=== PATIENT | female | born 1940 | race Caucasian/White ===

== ENCOUNTER 2018-06-17 13:29 | Observation (INO) ==
[~2018-06-17 13:29] MED LIST: LIDOCAINE W/ SODIUM BICARB 0.5 ML SYR ONE; LIDOCAINE W/ SODIUM BICARB 0.5 ML SYR SUBD ONE; Lactated Ringers 1,000 ML PRIMARY IV ONE; Nasal Sanitizer POPSWAB ampule 3 AMP (Nozin) PREOP DOSE ENOS SCH; ceFAZolin Inj 2gm (Premix) 2 GM/50 ML BAG IV ONE
[2018-06-17] MEDS: Lactated Ringers 1,000 ML PRIMARY IV SCH ×2 (13:55→19:14)
[2018-06-17] MEDS ORDERED: MIDAZOLAM HCL 2 MG/2 ML VIAL ONE (15:45)
[2018-06-17] MEDS ORDERED: LIDOCAINE 2%/ EPI 1:200,000 - 20 ML VIAL ONE (15:45)
[2018-06-17] MEDS ORDERED: fentaNYL Inj 100 MCG/2 ML VIAL ONE (15:45)
[2018-06-17] MEDS ORDERED: BUPIVACAINE 0.5% W/ EPI - 10 ML VIAL ONE (15:46)
[2018-06-17] MEDS ORDERED: BUPivacaine Inj 0.5% PF (5mg/ml) 30ml vial ONE (15:54)
[2018-06-17] MEDS ORDERED: PROPOFOL 10 MG/1 ML (200 MG/20 ML) VIAL IV ONE (16:24)
[2018-06-17] MEDS ORDERED: ePHEDrine Inj 50 MG/ML AMP ONE (16:31)
--- NOTE | 2018-06-17 16:52 | CRNA.PROCE ---
Nerve Block Documentation - - Safety Measures: Time Out Taken, Site Verified - - Type of Nerve Block Used: Left Adductor Canal Nerve Block Position for Nerve Block: Supine Moniters Used During Block: EKG, SPO2, NIBP Oxygen Supplemented: Yes Sedation Used - Enter Amount in Comment Field [ANES.SEDAT]: Midazolam (mg): Yes (2mg), Fentanyl (mcg): Yes (100mcg) Skin Prep Used: ChloroPrep Technique: Ultrasound Nerve Block Needle Used: EchoBright 100 mm Local Anesthetic - Enter Amt in Comment Field [ANES.LOCNB]: 0.5 % Bupivicaine with Epinephrine 1:200,000 (mL): Yes (15), 2 % Xylocaine with Epinephrine 1:200, 000 (mL): Yes (15) - - PreOp Block : Time In: 16:00 PreOp Block : Time Out: 16:10 Anesthesia Time - Other Weight: 58.513 kg Height: 5 ft 5 in Body Mass Index (BMI): 21.4
[2018-06-17] MEDS ORDERED: ONDANSETRON 4 MG/2 ML VIAL ONE (17:39)
--- NOTE | 2018-06-17 17:53 | ORTHO.OP ---
Surgery Date: 06/17/18 Preoperative Diagnosis: Lateral tibial plateau fracture left knee Postoperative Diagnosis: Same Procedure: ORIF left lateral tibial plateau fracture with screws Surgeon: Sandy Solano MD Arc Welder: IVAN Trotter Anesthesia Provider: Kev Garcia CRNA Anesthesia Type: General, Regional Estimated Blood Loss (mL): 25 Fluids: Crystalloid Complications: None Operative Summary: Extubated and taken recovery room in stable condition.
[2018-06-17] MEDS ORDERED: LIDOCAINE HCL 2 % 10 ML JELLY URO-JECT TOPICAL PRN (17:54)
[2018-06-17] MEDS ORDERED: ONDANSETRON 4 MG/2 ML VIAL IVP PRN (17:54)
[2018-06-17] MEDS ORDERED: Ondansetron ODT Tab 8 MG TAB PO PRN (17:54)
[2018-06-17] MEDS ORDERED: BISACODYL 5 MG TABLET PO PRN (17:54)
[2018-06-17] MEDS ORDERED: ACETAMINOPHEN 325 MG TABLET PO PRN (17:54)
[2018-06-17] MEDS ORDERED: MAG HYDROX/AL HYDROX/SIMETH 30 ML SUSP PO PRN (17:54)
[2018-06-17] MEDS ORDERED: Prochlorperazine Tab 10 MG TAB PO PRN (17:54)
[2018-06-17] MEDS ORDERED: CALCIUM CARBONATE 500 MG (TUMS) CHEWABLE TABLET PO PRN (17:54)
[2018-06-17] MEDS ORDERED: IBUPROFEN 400 MG TABLET PO PRN (17:54)
[2018-06-17] MEDS ORDERED: diphenhydrAMINE 25 MG CAPSULE PO PRN (17:54)
[2018-06-17] MEDS ORDERED: BISACODYL 10 MG SUPPOSITORY RECTAL PRN (17:54)
[2018-06-17] MEDS ORDERED: ceFAZolin Inj 2gm (Premix) 2 GM/50 ML BAG IV SCH (18:00)
--- NOTE | 2018-06-17 18:08 | CRNA.PROGR ---
Anesthesia Time - Procedure/Recovery Time Start Date: 06/17/18 End Date: 06/17/18 Anesthesia : Time In: 16:14 Anesthesia : Time Out: 17:52 Anesthesia : Total Time: 98 - Block Time PreOp Block : Time In: 16:00 PreOp Block : Time Out: 16:10 - Total Anesthesia Time Total Anesthesia Time (minutes): 98 - Other Weight: 58.513 kg Height: 5 ft 5 in Body Mass Index (BMI): 21.4
--- NOTE | 2018-06-17 18:09 | CRNA.PROGR ---
Post Anesthesia Phase II - Post Anesthesia Phase II Patient Stable and Discharged To: Phase II Care Assumed By Surgeon: Sandy Solano MD Temperature: 98.2 F Pulse Rate: 79 Respiratory Rate: 16 Blood Pressure: 123/74 Pulse Ox: 93 Total Doreen Score at Discharge: 10 Post Anesthesia Discharge Criteria Met: Yes
[2018-06-17] MEDS: Simvastatin Tab 40 MG TAB PO SCH (18:33)
[2018-06-17] MEDS: HYDROcodone-APAP 7.5 MG-325 MG TABLET PO PRN ×2 (18:39→20:52)
[2018-06-17] MEDS: D5-1/2NS + 20mEq KCL 1,000 ML PRIMARY IV SCH (18:41)
[2018-06-17] MEDS: MORPHINE SULFATE 2 MG/1 ML IVP PRN ×2 (18:59→20:51)
[2018-06-18] MEDS: ceFAZolin Inj 2gm (Premix) 2 GM/50 ML BAG IV SCH ×2 (00:28→07:22)
[2018-06-18] MEDS: HYDROcodone-APAP 7.5 MG-325 MG TABLET PO PRN ×4 (01:39→12:59)
[2018-06-18] MEDS: D5-1/2NS + 20mEq KCL 1,000 ML PRIMARY IV SCH (05:23)
[2018-06-18 07:34] VITALS: RESP 18
--- NOTE | 2018-06-18 07:38 | ORTHO.PROG ---
Last Taken Vital Signs: Vital Signs - Last Taken Temperature 97.4 F 06/18/18 07:00 Pulse Rate 53 L 06/18/18 07:00 Respiratory Rate 18 06/18/18 07:00 Blood Pressure 126/76 06/18/18 07:00 Pulse Ox 97 06/18/18 07:00 Subjective: Patient sitting up in bed eating breakfast not complaining of much pain. Has received some morphine and [place] through the night. Objective: Vital signs stable patient afebrile. Left knee brace intact. Patient is able to flex and extend her foot. Foot is vascular. Assessment: Impression: Doing well postop day 1 from fixation of left tibial plateau fracture. Plan: Plan: Is to do some therapy today helping her work on nonweightbearing status left lower extremity with walker. We will start her on Lovenox 40 mg subcutaneous daily. This is to prevent blood clot. I will check on her later today and possibly discharge her this afternoon.
[2018-06-18] MEDS: Simvastatin Tab 40 MG TAB PO SCH (08:20)
[2018-06-18] MEDS ORDERED: LISINOPRIL 20 MG TABLET PO SCH (09:00)
[2018-06-18] MEDS ORDERED: HYDROCHLOROTHIAZIDE 12.5 MG CAPSULE PO SCH (09:00)
[2018-06-18] MEDS ORDERED: ENOXAPARIN SODIUM 40 MG/0.4 ML SYRINGE SUBCUT SCH (09:00)
[2018-06-18] MEDS ORDERED: OXYBUTYNIN CHLORIDE 5 MG PO SCH (09:00)
[2018-06-18 11:08] VITALS: BP 105/69; TEMP 97.2; O2SAT 90
--- NOTE | 2018-06-18 12:45 | OPS CRUTCH ---
Diagnosis : Left ORIF Tibial Plateau w/ Screws Referral Reason: IROM Knee Brace/IceMan Cold Therapy Unit O: Patient was fit for IROM and issued an [facility] Cold Therapy Unit. The patient's brace didn't fit well so nursing was educated to properly adjust brace. P: No further therapy is indicated at this time. MTDD
--- NOTE | 2018-06-18 13:43 | ORTHO.PROG ---
Last Taken Vital Signs: Vital Signs - Last Taken Temperature 97.2 F 06/18/18 11:07 Pulse Rate 63 06/18/18 11:07 Respiratory Rate 18 06/18/18 11:07 Blood Pressure 105/69 06/18/18 11:07 Pulse Ox 90 06/18/18 11:07 Subjective: Patient seems to be doing well. Block is worn off so she is a little more sore. Objective: Left lower extremity exam unchanged. I readjusted the upper part of her brace to make a little more comfortable. Assessment: Impression: Doing well postop day 1 from fixation tibial plateau fracture. Plan: Plan: Is to discharge her today I'll see her back a week from tomorrow. She'll go out on [place] and also prescription for Lovenox 40 mg subcutaneous daily.
--- NOTE | 2018-06-18 14:58 | PT.PROG ---
Progress Note Progress Note: S. Patient stated that she has a couple stairs to get into her house. O. Patient ambulated 30 feet to the stair well then ascended and descended 3 stairs then ambulated 30 feet back to her room where she was left in chair with nursing. A. Patient tolerated ambulation and stair training well, she was able to tolerate non weight bearing status well. She was given and instructed on proper use of toilet riser with handles. Patient has met all goals at this time. P. Patient was only seen for gait training at this time.
== END 2018-06-18 14:26 | disposition home or self-care (01) ==
LOC: OR 13:29 → MED/SURG 13:29
PROVIDERS: ADMIT Orthopaedic Surgery; ATTEND Orthopaedic Surgery